=== PATIENT | male | born 1990 | race Caucasian/White ===

== ENCOUNTER 2023-06-01 16:43 | Emergency (ER) | payer OTHER ==
[~2023-06-01] VITALS: Ht 170.2 cm; Wt 81.8 kg
[2023-06-01 17:05] VITALS: BP 137/99; PULSE 89; RESP 18; TEMP 98.5; O2SAT 98
== END 2023-06-02 01:25 | disposition left against medical advice (07) ==
LOC: ER 16:45
DX: Z23 Encounter for immunization (principal); Z53.21 Procedure and treatment not carried out due to patient leaving prior to being seen by health care provider
CPT/HCPCS: 99281